=== PATIENT | female | born 1985 | race Caucasian/White ===

== ENCOUNTER 2018-12-07 07:17 | Day surgery (SDC) | payer BC ==
--- NOTE | 2018-12-06 12:18 | PCM.HPR ---
H & P Addendum review - H & P Addendum Review Date of Original H & P: 11/22/18 Date Reviewed: 12/07/18 Time Reviewed: 08:15 Patient was Examined: No Changes
[~2018-12-07 07:17] MED LIST: Aloe Vera/Sodium Chloride Gel 14.1 GM Tube ONE; EPINEPHrine 1 MG/ML SDV ONE; Lidocaine 1% 20 ML MDV ONE; Lidocaine 2% with EPINEPHrine 1:100,000 20 ML MDV ONE; Meperidine PF 25 MG/ML Syringe IVPUSH SCH; Ondansetron 4 MG/2 ML SDV IVPUSH SCH; Oxymetazoline 0.05% Nasal Spray 15 ML Bottle ONE
[2018-12-07] MEDS ORDERED: fentaNYL 100 MCG/2 ML SDV ONE (07:39)
[2018-12-07] MEDS ORDERED: Propofol 200 MG/20 ML SDV ONE (07:40)
[2018-12-07] MEDS ORDERED: Midazolam 1 MG/ML 2 ML SDV ONE (07:40)
[2018-12-07] MEDS ORDERED: diphenhydrAMINE 50 MG/ML SDV ONE (07:49)
[2018-12-07] MEDS ORDERED: Phenylephrine 1% 10 MG/ML SDV ONE (07:50)
[2018-12-07] MEDS ORDERED: Rocuronium 10 MG/ML 10 ML Syringe ONE (07:50)
[2018-12-07] MEDS ORDERED: Ondansetron 4 MG/2 ML SDV ONE (07:50)
[2018-12-07] MEDS ORDERED: Neostigmine Methylsulfate 1 MG/ML 5 ML Syringe ONE (07:50)
[2018-12-07] MEDS ORDERED: Dexamethasone 4 MG/ML 5 ML MDV ONE (07:50)
[2018-12-07] MEDS ORDERED: Glycopyrrolate 0.2 MG/ML SDV ONE ×2 (07:51→10:05)
--- NOTE | 2018-12-07 08:12 | PCM.PREANE ---
Preanesthetic Assessment - Anesthesia/Transfusion/Family Hx Anesthesia History: Prior Anesthesia Reaction Family History of Anesthesia Reaction: No Transfusion History: No Prior Transfusion(s) Intubation History: Unknown - Review of Systems General: No Symptoms Pulmonary: No Symptoms Cardiovascular: No Symptoms Gastrointestinal: No Symptoms Neurological: No Symptoms Other: Reports: None - Physical Assessment Height: 1.73 m Weight: 85.729 kg ASA Class: 2 Mental Status: Alert & Oriented x3 Airway Class: Mallampati = 2 Dentition: Reports: Normal Dentition, Chili(s) (left lower (back)) Thyro-Mental Finger Breadths: 3 Mouth Opening Finger Breadths: 3 ROM/Head Extension: Full Lungs: Clear to Auscultation, Normal Respiratory Effort Cardiovascular: Regular Rate, Regular Rhythm - Allergies Allergies/Adverse Reactions: Allergies Allergy/AdvReac Type Severity Reaction Status Date / Time No Known Allergies Allergy Verified 12/01/18 15:33 - Blood Blood Available: No - Anesthesia Plan Pre-Op Medication Ordered: None - Acknowledgements Anesthesia Type Planned: General Anesthesia Pt an Appropriate Candidate for the Planned Anesthesia: Yes Alternatives and Risks of Anesthesia Discussed w Pt/Guardian: Yes Pt/Guardian Understands and Agrees with Anesthesia Plan: Yes PreAnesthesia Questionnaire HEENT History: Reports: Allergic Rhinitis, Other (See Below) (long uvula) Respiratory History: Reports: Asthma (mild) Gastrointestinal History: Reports: GERD Genitourinary History: Reports: None [employer] ARCHITECT History: Reports: Musculoskeletal History: Reports: Fracture, Fibromyalgia Other Musculoskeletal History: hx of fx patella and toe Neurological History: Reports: Migraines Psychiatric History: Reports: Anxiety, Depression Endocrine/Metabolic History: Reports: Hypothyroidism Other Endocrine/Metabolic History: hx of Hashimotos Thyroiditis - Infectious Disease History Infectious Disease History: Reports: None - Past Surgical History Head Surgeries/Procedures: Reports: None Female Surgical History: Reports: Section - SUBSTANCE USE Smoking Status *Q: Never Smoker Recreational Drug Use History: No - HOME MEDS Home Medications: Home Meds Divalproex Sodium [Divalproex Sodium ER] 250 mg PO BEDTIME 10/06/18 [History] K[place]or Control 1 tab PO DAILY 10/06/18 [History] Levothyroxine 125 mcg PO DAILY 10/06/18 [History] Montelukast [Singulair] 10 mg PO BEDTIME 10/06/18 [History] Omeprazole Magnesium 40 mg PO DAILY 10/06/18 [History] Pregabalin [Lyrica] 150 mg PO BID 10/06/18 [History] Venlafaxine HCl [Venlafaxine ER] 225 mg PO DAILY 10/06/18 [History] Zolpidem Tartrate 10 mg PO BEDTIME PRN 10/06/18 [History] Albuterol Sulfate [Proair Hfa] 1 puff INH ASDIRECTED PRN 12/01/18 [History] Budesonide/Formoterol Fumarate [Symbicort 160-4.5 Mcg Inhaler] 2 puff INH BID [History] Cyanocobalamin (Vitamin B12) [Vitamin B12] 100 mcg PO DAILY 12/01/18 [History] Ondansetron [Zofran ODT] 4 mg PO ASDIRECTED PRN 12/01/18 [History] Rizatriptan Benzoate [Rizatriptan] 10 mg PO DAILY PRN 12/01/18 [History] Zolpidem Tartrate 10 mg PO BEDTIME PRN 12/01/18 [History] - CURRENT (IN HOUSE) MEDS Current Meds: Current Medications Fentanyl (Sublimaze) 25 mcg IVPUSH Q5M PRN PRN Reason: Pain (severe 7-10) Stop: 12/08/18 07:12 Meperidine HCl (Demerol) 12.5 mg IVPUSH .ONCE DANA Ondansetron HCl (Zofran) 4 mg IVPUSH .ONCE DANA Discontinued Medications Dexamethasone (Dexamethasone) Confirm Administered Dose 20 mg .ROUTE .[facility] ONE Stop: 12/07/18 07:51 Diphenhydramine HCl (Benadryl) Confirm Administered Dose 50 mg .ROUTE .STK-MED ONE Stop: 12/07/18 07:50 Epinephrine HCl (Adrenalin) Confirm Administered Dose 1 mg .ROUTE .STK-MED ONE Stop: 12/07/18 07:07 Fentanyl (Sublimaze) Confirm Administered Dose 100 mcg .ROUTE .STK-MED ONE Stop: 12/07/18 07:40 Glycopyrrolate (Robinul) Confirm Administered Dose 0.2 mg .ROUTE .STK-MED ONE Stop: 12/07/18 07:52 Lidocaine HCl (Xylocaine-Mpf 1%) Confirm Administered Dose 5 mls @ as directed .ROUTE .[facility] ONE Stop: 12/07/18 07:52 Lidocaine HCl (Xylocaine 1%) Confirm Administered Dose 20 ml .ROUTE .[facility] ONE Stop: 12/07/18 07:07 Lidocaine/Epinephrine (Xylocaine 2% With Epinephrine 1:100,000) Confirm Administered Dose 20 ml .ROUTE .[facility] ONE Stop: 12/07/18 07:07 Midazolam HCl (Versed 1 Mg/Ml) Confirm Administered Dose 2 mg .ROUTE .[facility] ONE Stop: 12/07/18 07:41 Neostigmine Methylsulfate (Neostigmine) Confirm Administered Dose 5 mg .ROUTE .[facility] ONE Stop: 12/07/18 07:51 Ondansetron HCl (Zofran) Confirm Administered Dose 4 mg .ROUTE .[facility] ONE Stop: 12/07/18 07:51 Oxymetazoline HCl (Afrin Original 0.05% Nasal [place]) Confirm Administered Dose 15 ml .ROUTE .[facility] ONE Stop: 12/07/18 07:07 Phenylephrine HCl (Sam-Synephrine) Confirm Administered Dose 10 mg .ROUTE .[facility] ONE Stop: 12/07/18 07:51 Propofol (Diprivan 20 Ml) Confirm Administered Dose 200 mg .ROUTE .[facility] ONE Stop: 12/07/18 07:41 Rocuronium [place] (Zemuron) Confirm Administered Dose 100 mg .ROUTE .[facility] ONE Stop: 12/07/18 07:51 Sodium Chloride ([place] Saline Nasal Gel) Confirm Administered Dose 14.1 gm .ROUTE .[facility] ONE Stop: 12/07/18 07:07
[2018-12-07] MEDS ORDERED: Lactated Ringers 1,000 ML IV SCH (08:15)
[2018-12-07] MEDS ORDERED: Bupivacaine 0.25%/EPINEPHrine 1:200,000 10 ML SDV ONE (08:15)
[2018-12-07] MEDS ORDERED: Esmolol 100 MG/10 ML SDV ONE (11:08)
[2018-12-07] MEDS ORDERED: Acetaminophen 1,000 MG in Premix Bag 1 BAG IV ONE (11:37)
[2018-12-07] MEDS ORDERED: oxyCODONE 5 MG Tab PO PRN (11:37)
[2018-12-07] MEDS: fentaNYL 100 MCG/2 ML SDV IVPUSH PRN ×4 (12:05→12:33)
--- NOTE | 2018-12-07 12:39 | PCM.OPNOTE ---
- General Post-Op/Procedure Note Date of Surgery/Procedure: 12/07/18 Condition: Good Free Text/Narrative:: Diagnosis: Snoring, elongated uvula, nasal obstruction, inferior turbinate hypertrophy, deviated nasal septum, Procedure: Partial uvulectomy, Coblation reduction of bilateral inferior turbinates, septoplasty. Surgeon: Charleen Cuevas MD Anesthesia: Gen. Anesthesiologist: Dr Love Indications: Snoring, elongated uvula, nasal obstruction, inferior turbinate hypertrophy, deviated nasal septum, Findings: Elongated uvula; bilateral inferior turbinate hypertrophy; deviated nasal septum - anterior deviation to the right in region of internal nasal valve ; severe right sided posterior vomer spur obstructing 90 percent of nasal cavity ; thin atrophic perpendicular plate of ethmoid; overall rightward curvature of the cartilaginous septum. An informed consent was obtained. A time out was performed and the patient was brought back to the operating room. Gen. anesthesia was administered with an endotracheal tube. The patient was then prepped and draped in a standard fashion. An appropriately sized Ferdinand Salomón mouth gag was introduced and suspended by Meza stand. The inferior half of the uvula was marked out. 0.25% Marcaine 1 in 100,000 epinephrine was infiltrated total of 0.6 mils was used. Monopolar cautery at a setting of 15 W cutting was used to excised the inferior half of uvula. Mucosa of the remainder stump was sutured with 3-0 Vicryl suture. Hemostasis was ensured. A throat pack was placed. Ferdinand Salomón mouth gag was removed and the patient was repositioned for the nasal procedure. A 0 degree rigid nasal endoscope was used to examine bilateral nasal cavities and photo documentation was obtained. Bilateral inferior turbinates were infilatrated with 1% lidocaine - 2 mls were injected on each side. The left inferior turbinate was addressed first. A reflex PTR coblation wand with tip dipped in AYR Gel was used at setting of 6 :2 for Coblation and coagulation respectively. The point of entry was coagulated and wand was inserted till the second marking. Two arrieta were created in the single channel. The inferior turbinate was visibly shrunk. Similar procedure was repeated on the right side with visible reduction in size of turbinates. Bilateral nasal cavities were then packed with oxymetazoline 0.05% soaked cottonoid pledgets. After an appropriate period of decongestion the pledgets were removed. Nasal septum was infiltrated with 2% lidocaine 1: 100, 000 epinephrine in a standard fashion-a total of 5 mils was used. A left sided yon-transfixation incision was performed. A left sided mucoperichondrial flap was elevated-dissection was commenced with 2 mm osteotome and further carried out with combination of che and [place] elevators. Posteriorly the flap was continued as a muco periosteal flap. A vertical incision was made in the cartilage approximately 1 cm posterior to the caudal end of septum. Contralateral mucoperichondrial and periosteal flaps were similarly elevated. There was a tear on the right flap overlying the spur. Left sided flap was entirely intact. Cartilage was dissected free from the maxillary crest up until, but not including the nasal spine. Posterior chondrotomy was performed. Posterior aspect of the septal cartilage overriding the chondral vomerine junction was removed. Inferior aspect of the perpendicular plate of the ethmoid was removed with [place]-Abdias scissors. Vomer along with the spur was moved with the Dorinda forceps. Approximately 1 cm of cartilage anterior to the chondral vomiting junction was removed preserving at least 1 cm dorsal strut. Thin strip of cartilage adjacent to the previously made vertical incision in the cartilage was also removed. Subsequent to this the septum was positioned in the midline. Flap and incision were sutured with 3-0 Vicryl and incision was also sutured Bilateral Tolbert splints were inserted and held in place with 2.0 Prolene suture. Drip pad was applied. This concluded the procedure and the patient was turned over to the anesthesiologist for recovery. Specimens: none IV fluids: 800 ml Blood loss: 15 ml Blood products: nil Disposition: PACU for recovery Follow up: In 1 week fo rremoval of splints.
--- NOTE | 2018-12-07 12:42 | PCM.POSTAN ---
POST ANESTHESIA ASSESSMENT - MENTAL STATUS Mental Status: Alert, Oriented - RESPIRATORY Respiratory Status: Respiratory Rate WNL, Airway Patent, O2 Saturation Stable - CARDIOVASCULAR CV Status: Pulse Rate WNL, Blood Pressure Stable - GASTROINTESTINAL GI Status: No Symptoms - PAIN Pain Score: 2 - POST OP HYDRATION Hydration Status: Adequate & Stable - OBSERVATIONS Free Text/Narrative:: no anesthesia problems
[2018-12-07] MEDS ORDERED: Ibuprofen 400 MG Tab PO PRN (13:30)
--- NOTE | 2018-12-07 14:58 | PCM48HPAN ---
Post Anesthesia Note - EVALUATION WITHIN 48HRS OF ANESTHETIC Vital Signs in Normal Range: Yes Patient Participated in Evaluation: Yes Respiratory Function Stable: Yes Airway Patent: Yes Cardiovascular Function Stable: Yes Hydration Status Stable: Yes Pain Control Satisfactory: Yes Nausea and Vomiting Control Satisfactory: Yes Mental Status Recovered: Yes Resp Rate: 12 Temperature: 36.6 C - COMMENTS/OBSERVATIONS Free Text/Narrative:: no anesthesia problems
== END 2018-12-07 14:59 | disposition home or self-care (01) ==
LOC: MW.SDS 07:17
PROVIDERS: ATTEND Otolaryngology
DX: K13.79 Other lesions of oral mucosa (principal); J34.3 Hypertrophy of nasal turbinates; J34.2 Deviated nasal septum; J34.89 Other specified disorders of nose and nasal sinuses; J45.909 Unspecified asthma, uncomplicated; E66.9 Obesity, unspecified; Z68.28 Body mass index [BMI] 28.0-28.9, adult; F41.9 Anxiety disorder, unspecified; K21.9 Gastro-esophageal reflux disease without esophagitis; E06.3 Autoimmune thyroiditis; Z79.890 Hormone replacement therapy; Z79.899 Other long term (current) drug therapy
CPT/HCPCS: 30802; 36415; 42140; 84703; A9270; J0131; J1100; J1200; J2250; J2370; J2405; J2704; J3010; J3490; J7120; J0171

== ENCOUNTER 2019-07-18 09:51 | Day surgery (SDC) | payer BC ==
[~2019-07-18 09:51] MED LIST changes: -Aloe Vera/Sodium Chloride Gel 14.1 GM Tube ONE; +Betamethasone Acetate/Betamethasone Sod Phosphate 30 MG/5 ML MDV EPIDUR ONE; -EPINEPHrine 1 MG/ML SDV ONE; +Iopamidol 200-M 10 ML vial ITHECAL ONE; -Lidocaine 1% 20 ML MDV ONE; +Lidocaine 2% 5 ML SDV INJECT ONE; -Lidocaine 2% with EPINEPHrine 1:100,000 20 ML MDV ONE; -Meperidine PF 25 MG/ML Syringe IVPUSH SCH; -Ondansetron 4 MG/2 ML SDV IVPUSH SCH; -Oxymetazoline 0.05% Nasal Spray 15 ML Bottle ONE; +Ropivacaine 0.5% 5 MG/ML 30 ML SDV INJECT ONE
--- NOTE | 2019-07-18 21:45 | OR ---
SURGEON: Lilian Cardona D.O. DATE OF PROCEDURE: 07/18/2019 PRIMARY SURGEON: Lilian Cardona D.O. SANDFILL OPERATOR: OR staff: 1. Neema Velazquez RN. 2. Al Mckenzie RN. 3. RT Halina. WOUND CLASS: I. PREOPERATIVE DIAGNOSES: 1. Lumbar degenerative disk disease. 2. Lumbar spondylosis. 3. Lumbar facet arthropathy. 4. Transitional vertebrae. 5. Spina bifida occulta. 6. Chronic low back pain. POSTOPERATIVE DIAGNOSES: 1. Lumbar degenerative disk disease. 2. Lumbar spondylosis. 3. Lumbar facet arthropathy. 4. Transitional vertebrae. 5. Spina bifida occulta. 6. Chronic low back pain. PROCEDURES PERFORMED: 1. Right L4-5 facet joint injection. 2. Right L5-S1 facet joint injection. 3. Left L4-5 facet joint injection. 4. Left L5-S1 facet joint injection. 5. Fluoroscopic guidance for needle placement. 6. Local with oral Valium for sedation. SCREENING QUESTIONS: The patient answered "No" to all the following questions: 1. Are you allergic to iodine, Betadine or latex? 2. Do you have a bleeding disorder? 3. Are you on anti-inflammatories or blood thinners? 4. Do you have any current local or systemic infections? MEDICAL NECESSITY: This is a patient with chronic low back pain who comes in for the above diagnostic procedure. This procedure is being performed in accordance with national guidelines written by the International Spine Intervention Society; please see medical necessity note in chart. DESCRIPTION OF PROCEDURE: The patient had the procedure thoroughly explained including risks, benefits and alternatives. Consent was signed in my clinic indicating understanding and willingness to proceed. The patient presented to [facility] and was escorted to the dressing room to disrobe and change into a hospital gown. Preoperative history and screening were performed by my nurse. Vital signs were taken and stable. The patient reported that Valium 10 milligrams was taken prior to the procedure. The patient was brought back to the procedure room and placed in the prone position on the procedure room table. A pillow was placed under the abdomen in order to flatten the lumbar lordosis. The back was prepped with ChloraPrep and sterilely draped. All personnel in the procedure room were dressed in appropriate attire including surgical scrubs, head and shoe covers. This was to ensure sterility while in the treatment room. During the time fluoroscopy was in use all personnel in the operating room wore lead frazier with thyroid collars. Sterile technique was used during the procedure. Then the fluoroscope was positioned to provide a right oblique view for the right L4-L5 facet injection. This was begun by anesthetizing the skin and soft tissues. The fluoroscope was positioned and a sterile 22-gauge 3.5 inch needle was placed at the junction of the 12 oclock position of the "eye of the miller dog" Precise needle placement was confirmed by fluoroscopy and increments of 0.2 cubic centimeters of IsoVue-200 contrast dye injected through microbore tubing under live fluoroscopy which showed no intravascular flow pattern and adequate flow in the target joint. After negative aspiration, 1.0 cubic centimeters of celestone and 0.5% Ropivacaine was injected without complications. The procedure was then repeated as above on the left for the left L4-5 facet injection. The fluoroscope was then positioned to provide a right L5-S1 facet injection. This was begun by anesthetizing the skin and soft tissues. Then using fluoroscopic guidance, a sterile 22-gauge 3.5 inch spinal needle was positioned at the right L5-S1 facet joint. Precise needle placement was confirmed by fluoroscopy in AP andoblique views, and 0.2 cubic centimeters of IsoVue-200 contrast dye was injected through microbore tubing under live fluoroscopy and showed no intravascular flow patternand adequate flow in and over the target facet joint. After negative aspiration,1.0 cubic centimeters of celestone and 0.5% Ropivacaine was injected. No complications were noted. The procedure was repaeted as above on the left for the left L5-S1 facet injection. The procedures were well tolerated and vital signs were stable during and after the procedure. The staff escorted the patient to the recovery area. The patient was given both oral and written discharge and followup instructions. The patient will follow up with a pain diary at the next visit. The patient was given both oral and written discharge and followup instructions. The patient voiced understanding including understanding of those signs and symptoms that would require emergency care and knows how to contact the office if there are any questions or concerns in the meantime. PREOPERATIVE PAIN: 6+/10. POSTOPERATIVE PAIN: 0-1/10. FOLLOWUP: In the Pain Clinic in 1 month. ZEKE SANTIAGO /[id number]
== END 2019-07-18 13:35 | disposition home or self-care (01) ==
LOC: MW.SDS 09:51
PROVIDERS: ATTEND Anesthesiology
DX: G89.29 Other chronic pain (principal); M54.5 Low back pain; M51.36 Other intervertebral disc degeneration, lumbar region; M47.816 Spondylosis without myelopathy or radiculopathy, lumbar region; M46.96 Unspecified inflammatory spondylopathy, lumbar region; Q76.49 Other congenital malformations of spine, not associated with scoliosis; Q76.0 Spina bifida occulta; J45.909 Unspecified asthma, uncomplicated; K21.9 Gastro-esophageal reflux disease without esophagitis; E78.5 Hyperlipidemia, unspecified; G43.909 Migraine, unspecified, not intractable, without status migrainosus; E66.9 Obesity, unspecified; F41.9 Anxiety disorder, unspecified; F32.9 Major depressive disorder, single episode, unspecified; E03.9 Hypothyroidism, unspecified; Z91.048 Other nonmedicinal substance allergy status; Z79.899 Other long term (current) drug therapy; Z79.84 Long term (current) use of oral hypoglycemic drugs
CPT/HCPCS: 64493; 64494; 81025; J0702

== ENCOUNTER 2020-05-02 11:04 | Day surgery (SDC) | payer MEDICAID ==
[2020-05-02] MEDS ORDERED: Lidocaine 2% 5 ML SDV INJECT ONE (12:30)
[2020-05-02] MEDS ORDERED: Ropivacaine 0.5% 5 MG/ML 30 ML SDV INJECT ONE (12:30)
[2020-05-02] MEDS ORDERED: Iopamidol 200-M 10 ML vial ITHECAL ONE (12:30)
[2020-05-02] MEDS ORDERED: Betamethasone Acetate/Betamethasone Sod Phosphate 30 MG/5 ML MDV EPIDUR ONE (12:30)
--- NOTE | 2020-05-02 20:29 | OR ---
SURGEON: Lilian Cardona D.O. DATE OF PROCEDURE: 05/02/2020 OR STAFF PRESENT: 1. Al Grant CRNA. 2. Germania Zapata RN. 3. Sofy Palma RT. WOUND CLASS: I. PREOPERATIVE DIAGNOSES: 1. Left lumbosacral radiculopathy, L5-S1. 2. Severe degenerative disk disease. 3. Transitional vertebrae, L5-S1. 4. Chronic low back and left lower extremity radiculopathy. POSTOPERATIVE DIAGNOSES: 1. Left lumbosacral radiculopathy, L5-S1. 2. Severe degenerative disk disease. 3. Transitional vertebrae, L5-S1. 4. Chronic low back and left lower extremity radiculopathy. PROCEDURES PERFORMED: 1. Left S1 transforaminal epidural steroid injection. 2. Fluoroscopic guidance for needle placement. 3. Local with oral Valium for sedation. SCREENING QUESTIONS: The patient answered "no" to all of the following questions: 1. Are you allergic to iodine, Betadine or latex? 2. Do you have a bleeding disorder? 3. Do you have any joint replacements, heart valve replacements, or a pacemaker? 4. Are you allergic to anti-inflammatories or blood thinners? 5. Do you have any current local or systemic infections? MEDICAL NECESSITY: This is a patient with a history of chronic low back pain and lower extremity radicular pain in the above dermatomal pattern that comes in for the above diagnostic and therapeutic procedure. Pertinent positives and negatives for this suspected disease process along with the diagnostic findings and testing are in the patient's history and physical exam. The most salient feature includes radicular pain in the above dermatomal pattern. The patient had failed attempts at conservative therapy including physical therapy, nonsteroidal anti- inflammatory drugs, and other medications. No contraindications to perform this procedure including medical, no bleeding disorders or infections, no psychological, no antisocial personality disorder or active addiction disorder. There are no work-related issues, and, in general, the patient does not have any history of multiple prior interventions, surgeries or nerve blocks which have failed to return the patient to function. The patient's other symptoms to be treated include numbness, paresthesia, dysesthesia or hypoesthesia referred into the left lower extremity or any weakness in the involved myotome. This procedure is being performed in accordance with national guidelines as written by the International Spine Intervention Society ([place]). DESCRIPTION OF PROCEDURE: The patient had the procedure thoroughly explained including risks, benefits and alternatives. Consent was signed in my clinic indicating understanding and willingness to proceed. The patient presented to [facility] [place] where the patient was escorted to the dressing room to disrobe and change into a hospital gown. Preoperative vital signs were taken and stable. The patient reported that Valium was taken prior to the procedure. The patient was brought to the procedure room and placed in the prone position on the table. A pillow was placed under the abdomen in order to flatten the lumbar lordosis. The back was prepped with ChloraPrep and sterilely draped. All personnel in the operating room were dressed in appropriate attire including surgical scrubs, head and shoe covers. This was to ensure sterility while in the treatment room. During the time fluoroscopy was in use, all personnel in the operating room wore lead frazier with thyroid collars. Sterile technique was used during the procedure. The fluoroscope was placed for the left transforaminal epidural steroid injection. There was no sign of infection at the skin site for needle insertion. The skin was anesthetized with 2% lidocaine with a 27 gauge 1-1/2 inch needle. Then a 22 gauge 3-1/2 inch spinal needle, advanced to the S1. Under direct fluoroscopic guidance needle position was verified in three views; AP, oblique and lateral, with 0.2 cubic centimeters increments of Isovue-200 dye. No intravascular flow pattern was observed under live fluoroscopy. Then 12 milligrams of Celestone was slowly injected after negative aspiration of heme, cerebrospinal fluid and no paresthesias were noted. The needle was cleared prior to removal from the skin. No adverse reactions were noted. The patient was brought to the recovery room awake and in good condition by my staff. The patient was monitored and discharge instructions were given after a brief stay in the recovery area. Both oral and written discharge and follow up instructions were given. The patient will follow up in the clinic in 3-4 weeks post procedure to evaluate the efficacy. The patient verbalized understanding including understanding of those signs and symptoms that would require emergency care and knows how to contact the office if there are any problems or questions in the meantime. PREOPERATIVE PAIN: 5/10. POSTOPERATIVE PAIN: 0/10. FOLLOWUP: In the Pain Clinic in one month. HOGLCHR / MODL /[id number]
== END 2020-05-02 13:45 ==
LOC: MW.SDS 11:04
PROVIDERS: ATTEND Anesthesiology
DX: G89.29 Other chronic pain (principal); M51.17 Intervertebral disc disorders with radiculopathy, lumbosacral region; M47.816 Spondylosis without myelopathy or radiculopathy, lumbar region; M51.27 Other intervertebral disc displacement, lumbosacral region; M41.9 Scoliosis, unspecified; M79.7 Fibromyalgia; J45.909 Unspecified asthma, uncomplicated; K21.9 Gastro-esophageal reflux disease without esophagitis; E78.5 Hyperlipidemia, unspecified; F41.9 Anxiety disorder, unspecified; F32.9 Major depressive disorder, single episode, unspecified; E66.9 Obesity, unspecified; G47.30 Sleep apnea, unspecified; Q76.0 Spina bifida occulta; Q76.49 Other congenital malformations of spine, not associated with scoliosis; Z79.890 Hormone replacement therapy; Z79.899 Other long term (current) drug therapy; Z68.27 Body mass index [BMI] 27.0-27.9, adult
CPT/HCPCS: 64483; J0702; 62323

== ENCOUNTER 2020-10-15 10:51 | Day surgery (SDC) | payer MEDICAID ==
[2020-10-15] MEDS ORDERED: Betamethasone Acetate/Betamethasone Sod Phosphate 30 MG/5 ML MDV EPIDUR ONE (12:30)
[2020-10-15] MEDS ORDERED: Ropivacaine 0.5% 5 MG/ML 30 ML SDV INJECT ONE (12:30)
[2020-10-15] MEDS ORDERED: Lidocaine 2% 5 ML SDV INJECT ONE (12:30)
[2020-10-15] MEDS ORDERED: Iopamidol 200-M 10 ML vial ITHECAL ONE (12:30)
--- NOTE | 2020-10-15 15:23 | OR ---
SURGEON: Lilian Cardona D.O. DATE OF PROCEDURE: 10/15/2020 PRIMARY SURGEON: Lilian Cardona DO PREOPERATIVE DIAGNOSES: 1. Lumbar degenerative disk disease, L5-S1. 2. L5-S1 transitional vertebrae. 3. Bilateral neural foraminal stenosis, L5-S1. 4. Bilateral lumbar radiculopathy at S1. POSTOPERATIVE DIAGNOSES: 1. Lumbar degenerative disk disease, L5-S1. 2. L5-S1 transitional vertebrae. 3. Bilateral neural foraminal stenosis, L5-S1. 4. Bilateral lumbar radiculopathy at S1. PROCEDURES PERFORMED: 1. Right S1 transforaminal epidural steroid injection. 2. Left S1 transforaminal epidural steroid injection. 3. Fluoroscopic guidance for needle placement. 4. Local with oral Valium for sedation. ASSISTANTS: OR staff present: 1. Shayele Milner RN. 2. Chase Lott RN. 3. RT Colleen. SCREENING QUESTIONS: The patient answered "no" to all of the following questions: 1. Are you allergic to iodine, Betadine or latex? 2. Do you have a bleeding disorder? 3. Do you have any joint replacements, heart valve replacements, or a pacemaker? 4. Are you allergic to anti-inflammatories or blood thinners? 5. Do you have any current local or systemic infections? DESCRIPTION OF PROCEDURE: The patient had the procedure thoroughly explained including risks, benefits and alternatives. Consent was signed in my clinic indicating understanding and willingness to proceed. The patient presented to [facility] [place] where the patient was escorted to the dressing room to disrobe and change into a hospital gown. Preoperative vital signs were taken and stable. The patient reported that Valium was taken prior to the procedure. The patient was brought to the procedure room and placed in the prone position on the table. A pillow was placed under the abdomen in order to flatten the lumbar lordosis. The back was prepped with ChloraPrep and sterilely draped. All personnel in the operating room were dressed in appropriate attire including surgical scrubs, head and shoe covers. This was to ensure sterility while in the treatment room. During the time fluoroscopy was in use, all personnel in the operating room wore lead frazier with thyroid collars. Sterile technique was used during the procedure. The fluoroscope was placed for the right S1 and then the left S1 transforaminal epidural steroid injection. There was no sign of infection at the skin site for needle insertion. The skin was anesthetized with 2% lidocaine with a 27 gauge 1-1/2 inch needle. Then, a 22 gauge 3-1/2 inch spinal needle, advanced to the right S1 foramen. Under direct fluoroscopic guidance needle position was verified in three views; AP, oblique and lateral, with 0.2 cubic centimeters increments of Isovue-200 dye. No intravascular flow pattern was observed under live fluoroscopy. Then 6 milligrams of Celestone and local was slowly injected after negative aspiration of heme, cerebrospinal fluid and no paresthesias were noted. The needle was cleared prior to removal from the skin. The procedure was then repeated on the right for the right S1 transforaminal epidural steroid injection as above. No adverse reactions were noted. The patient was brought to the recovery room awake and in good condition by my staff. The patient was monitored and discharge instructions were given after a brief stay in the recovery area. Both oral and written discharge and follow up instructions were given. The patient will follow up in the clinic in 3-4 weeks post procedure to evaluate the efficacy. The patient verbalized understanding including understanding of those signs and symptoms that would require emergency care and knows how to contact the office if there are any problems or questions in the meantime. PREOPERATIVE PAIN: 5/10. POSTOPERATIVE PAIN: 1 to 2 out of 10. FOLLOWUP: In the Pain Clinic in 3 weeks. ZEKE / PAMELA /[id number] ROYAL
== END 2020-10-15 13:55 ==
LOC: MW.SDS 10:51
PROVIDERS: ATTEND Anesthesiology
DX: G89.4 Chronic pain syndrome (principal); M51.17 Intervertebral disc disorders with radiculopathy, lumbosacral region; M48.07 Spinal stenosis, lumbosacral region; F41.9 Anxiety disorder, unspecified; F32.9 Major depressive disorder, single episode, unspecified; J45.909 Unspecified asthma, uncomplicated; E78.5 Hyperlipidemia, unspecified; G47.00 Insomnia, unspecified; E66.9 Obesity, unspecified; E03.9 Hypothyroidism, unspecified; M79.7 Fibromyalgia; M47.816 Spondylosis without myelopathy or radiculopathy, lumbar region; M51.16 Intervertebral disc disorders with radiculopathy, lumbar region; Q76.49 Other congenital malformations of spine, not associated with scoliosis; M41.9 Scoliosis, unspecified; Z91.048 Other nonmedicinal substance allergy status; Z79.899 Other long term (current) drug therapy; Z79.890 Hormone replacement therapy; Z98.890 Other specified postprocedural states

== ENCOUNTER 2021-02-06 10:52 | Day surgery (SDC) | payer MEDICAID ==
[2021-02-06] MEDS ORDERED: Ropivacaine 0.5% 5 MG/ML 30 ML SDV INJECT ONE (12:00)
[2021-02-06] MEDS ORDERED: Iopamidol 200-M 10 ML vial ITHECAL ONE (12:00)
[2021-02-06] MEDS ORDERED: Lidocaine 2% 5 ML SDV INJECT ONE (12:00)
[2021-02-06] MEDS ORDERED: Betamethasone Acetate/Betamethasone Sod Phosphate 30 MG/5 ML MDV EPIDUR ONE (12:00)
--- NOTE | 2021-02-06 21:59 | OR ---
SURGEON: Lilian Cardona D.O. DATE OF PROCEDURE: 02/06/2021 PRIMARY SURGEON: Lilian Cardona D.O. CERAMIC PLATER: OR staff present: 1. Jeferson Hilario RN. 2. Jeferson Zapata RN. 3. Carl Palma RT. WOUND CLASS: I. PREOPERATIVE DIAGNOSES: 1. L5-S1 herniated disk. 2. L5-S1 transitional vertebrae. 3. Lumbar spondylosis. 4. Bilateral lower extremities L5-S1 radiculopathy. POSTOPERATIVE DIAGNOSES: 1. L5-S1 herniated disk. 2. L5-S1 transitional vertebrae. 3. Lumbar spondylosis. 4. Bilateral lower extremities L5-S1 radiculopathy. PROCEDURE PERFORMED: 1. Right L5 transforaminal epidural steroid injection. 2. Right S1 transforaminal epidural steroid injection. 3. Left S1 transforaminal epidural steroid injection. 4. Fluoroscopic guidance for needle placement. 5. Local with oral Valium for sedation. SCREENING QUESTIONS: The patient answered "no" to all of the following questions: 1. Are you allergic to iodine, Betadine or latex? 2. Do you have a bleeding disorder? 3. Do you have any joint replacements, heart valve replacements, or a pacemaker? 4. Are you allergic to anti-inflammatories or blood thinners? 5. Do you have any current local or systemic infections? DESCRIPTION OF PROCEDURE: The patient had the procedure thoroughly explained including risks, benefits and alternatives. Consent was signed in my clinic indicating understanding and willingness to proceed. The patient presented to [facility] [place] where the patient was escorted to the dressing room to disrobe and change into a hospital gown. Preoperative vital signs were taken and stable. The patient reported that Valium was taken prior to the procedure. The patient was brought to the procedure room and placed in the prone position on the table. A pillow was placed under the abdomen in order to flatten the lumbar lordosis. The back was prepped with ChloraPrep and sterilely draped. All personnel in the operating room were dressed in appropriate attire including surgical scrubs, head and shoe covers. This was to ensure sterility while in the treatment room. During the time fluoroscopy was in use, all personnel in the operating room wore lead frazier with thyroid collars. Sterile technique was used during the procedure. The fluoroscope was placed for the right L5 lumbar transforaminal epidural steroid injection. There was no sign of infection at the skin site for needle insertion. The skin was anesthetized with 2% lidocaine with a 27 gauge 1-1/2 inch needle. Then a 22 gauge 3-1/2 inch spinal needle, advanced to the foramen. Under direct fluoroscopic guidance needle position was verified in three views; AP, oblique and lateral, with 0.2 cubic centimeters increments of Isovue-200 dye. No intravascular flow pattern was observed under live fluoroscopy. A mixture of Celestone and local was slowly injected after negative aspiration of heme, cerebrospinal fluid and no paresthesias were noted. The needle was cleared prior to removal from the skin. No adverse reactions were noted. The procedure was then repeated as above for the right S1 transforaminal epidural and then the left transforaminal epidural The patient was brought to the recovery room awake and in good condition by my staff. The patient was monitored and discharge instructions were given after a brief stay in the recovery area. Both oral and written discharge and follow up instructions were given. The patient will follow up in the clinic in 3-4 weeks post procedure to evaluate the efficacy. The patient verbalized understanding including understanding of those signs and symptoms that would require emergency care and knows how to contact the office if there are any problems or questions in the meantime. PREOPERATIVE PAIN: 4- 9/10. POSTOPERATIVE PAIN: 0/10. PLAN: Followup in the pain clinic in 2 weeks. ZEKE / PAMELA /[id number] ROYAL
== END 2021-02-06 13:34 | disposition home or self-care (01) ==
LOC: MW.SDS 10:52
PROVIDERS: ATTEND Anesthesiology
DX: M51.17 Intervertebral disc disorders with radiculopathy, lumbosacral region (principal); M47.26 Other spondylosis with radiculopathy, lumbar region; Q76.49 Other congenital malformations of spine, not associated with scoliosis; G43.709 Chronic migraine without aura, not intractable, without status migrainosus; K21.9 Gastro-esophageal reflux disease without esophagitis; E78.5 Hyperlipidemia, unspecified; E66.9 Obesity, unspecified; G62.9 Polyneuropathy, unspecified; G47.30 Sleep apnea, unspecified; E03.9 Hypothyroidism, unspecified; M79.7 Fibromyalgia; M51.16 Intervertebral disc disorders with radiculopathy, lumbar region; Z68.27 Body mass index [BMI] 27.0-27.9, adult; Z91.048 Other nonmedicinal substance allergy status; Z79.899 Other long term (current) drug therapy; Z79.890 Hormone replacement therapy; Z98.890 Other specified postprocedural states
CPT/HCPCS: 64483; 64484; J0702; J2795; Q9966

== ENCOUNTER 2021-04-08 07:35 | Day surgery (SDC) | payer OTHER, MEDICAID ==
[~2021-04-08 07:35] MED LIST changes: -Betamethasone Acetate/Betamethasone Sod Phosphate 30 MG/5 ML MDV EPIDUR ONE; -Iopamidol 200-M 10 ML vial ITHECAL ONE; +Lactated Ringers 1,000 ML IV SCH; -Lidocaine 2% 5 ML SDV INJECT ONE; -Ropivacaine 0.5% 5 MG/ML 30 ML SDV INJECT ONE; +ceFAZolin 1 GM in Premix Bag 1 BAG IV ONE
[2021-04-08] MEDS ORDERED: Propofol 200 MG/20 ML SDV ONE (11:12)
[2021-04-08] MEDS ORDERED: Midazolam 1 MG/ML 2 ML SDV ONE (11:12)
[2021-04-08] MEDS ORDERED: fentaNYL 100 MCG/2 ML SDV ONE (11:12)
[2021-04-08] MEDS ORDERED: Ondansetron 4 MG/2 ML SDV ONE (11:12)
[2021-04-08] MEDS ORDERED: Ketamine 500 mg/10 ML MDV ONE (12:03)
--- NOTE | 2021-04-08 12:04 | PCM.PREANE ---
Preanesthetic Assessment - Anesthesia/Transfusion/Family Hx Anesthesia History: Prior Anesthesia Reaction Family History of Anesthesia Reaction: No Transfusion History: No Prior Transfusion(s) Intubation History: Unknown - Physical Assessment NPO Status Date: 04/08/21 NPO Status Time: 00:01 Height: 5 ft 8 in Weight: 177 lb ASA Class: 5E Emergency Mental Status: Alert & Oriented x3 Airway Class: Mallampati = 2 Dentition: Reports: Normal Dentition ROM/Head Extension: Full Lungs: Normal Respiratory Effort Cardiovascular: Regular Rhythm - Lab Values: Laboratory Last Values SARS-CoV-2 RNA (MILO) NEGATIVE (NEGATIVE) 04/08/21 10:37 - Allergies Allergies/Adverse Reactions: Allergies Allergy/AdvReac Type Severity Reaction Status Date / Time animal dander Allergy Unknown Other Verified 04/04/21 10:48 dog dander Allergy Unknown Other Verified 04/04/21 10:48 mold Allergy Unknown Other Verified 04/04/21 10:48 pollen extracts Allergy Unknown Other Verified 04/04/21 10:48 other Allergy Unknown Other Uncoded 04/04/21 10:48 - Anesthesia Plan Pre-Op Medication Ordered: None - Acknowledgements Anesthesia Type Planned: MAC Pt an Appropriate Candidate for the Planned Anesthesia: Yes Alternatives and Risks of Anesthesia Discussed w Pt/Guardian: Yes Pt/Guardian Understands and Agrees with Anesthesia Plan: Yes Additional Comments: npo after mn chronic pain mostly ekaterina legs below the knees tob none etoh occ bmi 27 fibromyalgia CRPS ekaterina lower legs adhd hayfever asthma prn inhalers susan par prone with awake stimulater paresthesias anxiety depression headaches multiple allergies naltrexone 6 mg a day took 2 mg this am no cv problems no questions rarely takes the intranasal ketamine due to burning PreAnesthesia Questionnaire HEENT History: Reports: Allergic Rhinitis Cardiovascular History: Reports: None Respiratory History: Reports: Asthma Other Respiratory History: has not needed inhaler for 3 years Gastrointestinal History: Reports: GERD Genitourinary History: Reports: None TOBACCO HANGER History: Reports: Musculoskeletal History: Reports: Back Pain, Chronic, Fracture, Fibromyalgia Other Musculoskeletal History: hx of fx toes Neurological History: Reports: Migraines, Neuropathy, Peripheral, Other (See Below) Other Neuro History: lumbar degenerative disc disease Psychiatric History: Reports: ADHD Endocrine/Metabolic History: Reports: Hypothyroidism Other Endocrine/Metabolic History: hx of Hashimotos thyroiditis Hematologic History: Reports: None Immunologic History: Reports: None Oncologic (Cancer) History: Reports: None Dermatologic History: Reports: None - Infectious Disease History Infectious Disease History: Reports: None - Past Surgical History Head Surgeries/Procedures: Reports: None HEENT Surgical History: Reports: Naso-Sinus Surgery, Other (See Below) Other HEENT Surgeries/Procedures: Uvulectomy Cardiovascular Surgical History: Reports: None Respiratory Surgical History: Reports: None GI Surgical History: Reports: None Female Surgical History: Reports: Section Endocrine Surgical History: Reports: None Neurological Surgical History: Reports: None Musculoskeletal Surgical History: Reports: None Oncologic Surgical History: Reports: None - SUBSTANCE USE Tobacco Use Status *Q: Never Tobacco User Recreational Drug Use History: Yes Recreational Drug Type: Reports: Marijuana/Hashish - HOME MEDS Home Medications: Home Meds [place]or Control 1 tab PO DAILY 10/06/18 [History] Levothyroxine 125 mcg PO QAM 10/06/18 [History] Montelukast [Singulair] 10 mg PO BEDTIME 10/06/18 [History] Albuterol Sulfate [Proair Hfa] 1 puff INH ASDIRECTED PRN 12/01/18 [History] Cyanocobalamin (Vitamin B12) [Vitamin B12] 100 mcg PO DAILY 12/01/18 [History] Rizatriptan Benzoate [Rizatriptan] 10 mg PO ONETIME MDD 30 mg 12/01/18 [History] Azelastine HCl 1 spray NASBOTH BID PRN 04/04/21 [History] Cetirizine [ZyrTEC] 10 mg PO DAILY 04/04/21 [History] Dexlansoprazole [Dexilant] 30 mg PO DAILY 04/04/21 [History] FLUoxetine HCl [Fluoxetine HCl] 40 mg PO DAILY 04/04/21 [History] Gabapentin [Neurontin] 300 mg PO QAM 04/04/21 [History] Gabapentin [Neurontin] 600 mg PO BEDTIME 04/04/21 [History] Ketamine HCl [Ketamine Hydrochloride] 1 dose TOP ASDIRECTED PRN 04/04/21 [History] Ketamine HCl in Sterile Water [Ketamine 50 mg/ml-Water Syring] 1 spray NASBOTH ASDIRECTED PRN 04/04/21 [History] Lisdexamfetamine Dimesylate [Vyvanse] 40 mg PO ACBREAKFAST 04/04/21 [History] Naltrexone 2 mg PO QAM 04/04/21 [History] Naltrexone 4 mg PO BEDTIME 04/04/21 [History] Ondansetron [Zofran ODT] 4 - 8 mg PO Q4H PRN 04/04/21 [History] tiZANidine HCl [Tizanidine HCl] 4 mg PO BEDTIME 04/04/21 [History] - CURRENT (IN HOUSE) MEDS Current Meds: Current Medications Lactated Ringer's (Ringers, Lactated) 1,000 mls @ 125 mls/hr IV ASDIRECTED DANA Lidocaine HCl (Lidocaine 1% 5 Ml Sdv) 10 ml INJECT ONETIME ONE Stop: 04/08/21 12:01 Discontinued Medications Fentanyl (Fentanyl 100 Mcg/2 Ml Sdv) Confirm Administered Dose 100 mcg .ROUTE .STK-MED ONE Stop: 04/08/21 11:13 Cefazolin Sodium/Dextrose 1 gm (/ Premix) 50 mls @ 100 mls/hr IV ONETIME ONE Stop: 04/04/21 10:10 Midazolam HCl (Midazolam 1 Mg/Ml 2 Ml Sdv) Confirm Administered Dose 2 mg .ROUTE .STK-MED ONE Stop: 04/08/21 11:13 Ondansetron HCl (Ondansetron 4 Mg/2 Ml Sdv) Confirm Administered Dose 4 mg .ROUTE .STK-MED ONE Stop: 04/08/21 11:13 Propofol (Propofol 200 Mg/20 Ml Sdv) Confirm Administered Dose 400 mg .ROUTE .STK-MED ONE Stop: 04/08/21 11:13
--- NOTE | 2021-04-08 13:59 | PCM.POSTAN ---
POST ANESTHESIA ASSESSMENT - MENTAL STATUS Mental Status: Alert (no anesthetic problems), Oriented - RESPIRATORY Respiratory Status: Respiratory Rate WNL, Airway Patent, O2 Saturation Stable - CARDIOVASCULAR CV Status: Pulse Rate WNL, Blood Pressure Stable - GASTROINTESTINAL GI Status: No Symptoms - POST OP HYDRATION Hydration Status: Adequate & Stable
--- NOTE | 2021-04-08 15:07 | PCM48HPAN ---
Post Anesthesia Note - EVALUATION WITHIN 48HRS OF ANESTHETIC Vital Signs in Normal Range: Yes Patient Participated in Evaluation: Yes Respiratory Function Stable: Yes Airway Patent: Yes Cardiovascular Function Stable: Yes Hydration Status Stable: Yes Pain Control Satisfactory: Yes (insertion site oreness) Nausea and Vomiting Control Satisfactory: Yes Mental Status Recovered: Yes - COMMENTS/OBSERVATIONS Free Text/Narrative:: Doing well. No problems noted present. Adequate for discharge.
--- NOTE | 2021-04-08 19:41 | OR ---
SURGEON: Lilian Cardona D.O. DATE OF PROCEDURE: 04/08/2021 PRIMARY SURGEON: Lilian Cardona D.O. TITLE CAMERA OPERATOR: OR staff present: 1. Shaylee Milner RN. 2. Al Mac RT. WOUND CLASS: I. PREOPERATIVE DIAGNOSES: 1. Complex regional pain syndrome type I, not otherwise specified. 2. Bilateral lower extremities chronic neuropathic pain. 3. Chronic pain syndrome. POSTOPERATIVE DIAGNOSES: 1. Complex regional pain syndrome type I, not otherwise specified. 2. Bilateral lower extremities chronic neuropathic pain. 4. Chronic pain syndrome. PROCEDURE PERFORMED: 1. [employer] spinal cord stimulator 16 standard contact lead electrodes placed to bottom of T8 at midline right . 2. [employer] spinal cord stimulator 16 contact lead attempted on the left. 3. Fluoroscopic guidance for needle placement. ANESTHESIA:MAC SCREENING QUESTIONS: The patient answered no to all the following questions: 1. Are you allergic to iodine, Betadine, or latex? 2. Do you have a bleeding disorder? 3. Are you on anti-inflammatories or blood thinners? 4. Are you ? 5. Do you have any current local or systemic infections? 6. Do you have any joint replacements, heart valve replacements or a pacemaker? DESCRIPTION OF PROCEDURE: The patient had the procedure thoroughly explained including risks, benefits, and alternatives. Consent was signed in my clinic indicating understanding and willingness to proceed. The patient presented to [facility] and was escorted to the dressing room to disrobe and change into a hospital gown. Preoperative history and screening were performed by the nurse. Vital signs were taken and stable. The patient was set up with an IV prior to the procedure. The patient was brought back to the procedure room and placed in the prone position on the procedure room table. A pillow was placed under the abdomen in order to flatten the lumbar lordosis. The patient was positioned comfortably and there was no evidence of infection at the sites of needle insertion. The back was prepped with ChloraPrep and sterilely draped. All personnel in the operating room were dressed in appropriate attire including surgical scrubs, head and shoe covers. This was to ensure sterility while in the treatment room. During the time fluoroscopy was in use, all personnel in the operating room wore lead frazier with thyroid collars. Sterile technique was used during the procedure. Prior to the start of the procedure, prophylactic antibiotic was administered IV- 1gm Ancef. Skeletal landmarks were identified under fluoroscopic guidance for the L1-2 interspace. At all insertion sites, the skin and soft tissues were anesthetized with 2% lidocaine preservative-free with a sterile 27-gauge 1-1/2 inch needle. The epidural space was entered with a 14-gauge Tuohy epidural needle with loss-of- resistance technique. Under live fluoroscopic guidance, the 16 standard contact lead electrodes were advanced approximately to the midline at the bottom of the T8 vertebral body on the right. No CSF, no heme, no paresthesia were noted. Then the lead placement was attempted on the left but with anterior epidural space migration with repostitioning was attempted x 3 and then aborted. Then testing by the neuromodulation clinical specialist revealed appropriate coverage of the patient's normal areas of pain using the midline lead placed at bottom of T8. The lead was then secured to the skin with mastisol and occlusive dressing. No complications were noted throughout the procedure and vital signs were stable. Then the patient was brought to the recovery room in stable condition. At that time, the patient had additional stimulation patterns programmed which covered all the normal areas of pain covering the low back , bilateral lower extremities, feet and to her toes. The patient tolerated the procedure well and was released home with postoperative instructions for followup in the clinic. The patient will fill out a pain diary throughout the week of the spinal cord stimulator trial. Additionally, prior to discharge, postoperative instructions were given to the patient and the patient voiced understanding, including understanding of those signs and symptoms that would require emergency care. PREOPERATIVE PAIN: 8/10. POSTOPERATIVE PAIN: 0/10. AREAS OF PAIN All covered by spinal cord stimulator sensation. PLAN: Follow up in the Pain Clinic on Wednesday with pain diary. HOGRAKEL / PAMELA /[id number] ROYAL
== END 2021-04-08 15:02 | disposition home or self-care (01) ==
LOC: MW.SDS 07:35
PROVIDERS: ATTEND Anesthesiology
DX: G90.522 Complex regional pain syndrome I of left lower limb (principal); M48.061 Spinal stenosis, lumbar region without neurogenic claudication; Q76.49 Other congenital malformations of spine, not associated with scoliosis; M51.16 Intervertebral disc disorders with radiculopathy, lumbar region; G89.4 Chronic pain syndrome; E78.5 Hyperlipidemia, unspecified; K21.9 Gastro-esophageal reflux disease without esophagitis; E03.9 Hypothyroidism, unspecified; E66.9 Obesity, unspecified; Z01.812 Encounter for preprocedural laboratory examination; Z20.822 Contact with and (suspected) exposure to COVID-19; Z91.048 Other nonmedicinal substance allergy status; Z79.899 Other long term (current) drug therapy; Z68.26 Body mass index [BMI] 26.0-26.9, adult
CPT/HCPCS: 63650; 63685; 81025; 87635; C1778; J2250; J2405; J2704; J7120; J3010; U0002

== ENCOUNTER 2021-08-01 12:08 | Emergency (ER) | payer OTHER ==
[2021-08-01] MEDS ORDERED: Sodium Chloride 0.9% 10 ML Syringe FLUSH PRN (12:19)
[2021-08-01] MEDS ORDERED: Ondansetron 4 MG/2 ML SDV IVPUSH ONE (12:19)
[2021-08-01] MEDS ORDERED: Sodium Chloride 0.9% 2.5 ML Syringe FLUSH PRN (12:19)
--- NOTE | 2021-08-01 12:21 | EDM.PDOC ---
ED HPI GENERAL MEDICAL PROBLEM - General Chief Complaint: Respiratory Problem Stated Complaint: COVID POS Time Seen by Provider: 08/01/21 12:13 Source of Information: Reports: Patient History Limitations: Reports: No Limitations - History of Present Illness INITIAL COMMENTS - FREE TEXT/NARRATIVE: HISTORY AND PHYSICAL: History of present illness: The patient is a 35-year-old female who presents to the emergency room via EMS for complaints of cough, pain, weakness, decreased appetite, decreased fluid intake, and tested Covid positive on Wednesday. The patient states that her s ymptoms started on 07/23/2021. She was tested on 07/28/2021 and notified on 07/30/2020 one of her positive status. The patient does complain of a headache. She states that she was seen on Wednesday and now as she had a spinal cord stimulator placed on June 24, 2021 and was still having upper back pain. The patient has been taking Toradol 10 mg p.o. at home. Patient denies any change in vision, syncope or near syncope. Denies any chest pain. Denies any diarrhea, constipation or dysuria. In the emergency department the patient is hemodynamically stable with a pulse of 80, blood pressure 110/64, respiration rate 18, O2 saturation of 98% on room air. Temperature 98 degrees. Review of systems: As per history of present illness and below otherwise all systems reviewed and negative. Past medical history: As per history of present illness and as reviewed below otherwise noncontributory. Surgical history: As per history of present illness and as reviewed below otherwise noncontributor y. Social history: See social history for further information Family history: As per history of present illness and as reviewed below otherwise noncontributory. Physical exam: General: Well developed and well nourished. Alert and orientated x 3. Nontoxic in appearance and in no acute distress. Vital signs are stable and have been reviewed by me. Nursing notes were reviewed. HEENT: Atraumatic, normocephalic, pupils equal and reactive bilaterally, negative for conjunctival pallor or scleral icterus, mucous membranes moist, TMs normal bilaterally, throat clear, neck supple, nontender, trachea midline. No drooling or trismus noted. No meningeal signs. No hot potato voice noted. Lungs: Rubs lower right, rest lung pisano clear to auscultation. No wheezes, rales, or rhonchi. Chest nontender. Normal work of breathing, no accessory muscles used. Heart: S1S2, regular rate and rhythm without overt murmur, gallops, or rubs. No JVD. No peripheral edema Abdomen: Soft, nondistended, nontender. Normoactive bowel sounds. Negative for masses or costovertebral tenderness. Skin: Intact, warm, dry. No lesions or rashes noted. Hematologic: No petechiae or purpra. Mucosa appropriate color and normal nail bed color and refill. Extremities: Atraumatic, moves all extremities per self without difficulty or deficits, negative for cords or calf pain. Neurovascular unremarkable. Neuro: Awake, alert, oriented. Cranial nerves II through XII unremarkable. Cerebellum unremarkable. Motor and sensory unremarkable throughout. Exam nonfocal. Psychiatric: Mood and affect are appropriate. Normal thought process. Answering questions appropriately. Notes: *This patient was seen and evaluated during the 2019 SARS-CoV-2 novel coronavirus pandemic period. Community viral transmission is ongoing at time of this encounter and the emergency department is operating under pandemic response procedures. As stated above the patient is a 35-year-old female who presents to the emergency room after testing for Covid positive on 07/28/2021. Her symptoms started 07/23/2021. The patient arrived via EMS. The patient's Covid symptoms and her stable vital signs along with her health history do not put her at a moderate or high risk for hospitalization. Therefore no Regeneron infusion is indicated at this time. The patient is aware of this. I have ordered a CBC, CMP, magnesium, EKG, chest x-ray and IV fluids, and Zofran. As the patient is on oral Toradol at home I have ordered Tylenol 975 mg p.o. The patient is agreeable with this plan. The patient CBC is unremarkable. The patient's CMP is remarkable for a sodium of 135, calcium 7.9 magnesium 1.7, AST 48.The patient's chest x-ray IMPRESSION: 1. Mild ground-glass opacities are present in the right lung base with patchy consolidation seen in the left lung base. The left basilar consolidation has increased since prior exam. The patient complained of dizziness and of being"hot", she was not orthostatic. I have sent the order for the patient to have the Regeneron as she has Covid pneumonia. The patient is aware. The patient is agreeable for discharge. I have talked with the patient about today's findings, in addition to providing specific details for plan of care. Reassessment at the time of disposition demonstrates that the patient is in no acute distress. The patient is stable for discharge, counseling was provided and we discussed in great detail signs and symptoms that would prompt them to return to the Emergency Department. Medication, follow up and supportive care measures were reviewed and discussed. Voices understanding and is agreeable to plan of care. Denies any further questions or concerns at this time. Diagnostics: CBC, CMP, magnesium, EKG, chest x-ray Therapeutics: Fluids, Zofran 4 mg IV, Tylenol 975 mg p.o. Prescription: Zofran 4 mg ODT every 6 hours as needed for nausea Impression: COVID-19 pneumonia Plan: 1. Your COVID-19 screening is positive. That means you do have the coronavirus and you are considered contagious. Your vital signs and oxygen saturation are well enough that you were able to monitor your symptoms at home. Continue to monitor for trouble breathing, new confusion or inability to arouse, bluish lips or face or any of the other symptoms we discussed -if this occurs please return to the emergency room. 2. Please self quarantine until cleared by [facility]. Inform any persons that you have been in contact with since you started becoming symptomatic that you have tested positive; they should be made aware and take the appropriate steps as needed. 3. You can take NyQuil during the evening to help get a restful night sleep. May alternate Tylenol and ibuprofen as needed for pain and fever management. 4. The [facility] department will be calling you and following up with you. The [place] COVID 19 Hotline phone number , They are open Wednesday - Wednesday 7am - 7pm. Follow up with your primary care provider for re-evaluation and re-testing after the 10 day quarantine and discuss when you should be seen. 5. You will be called by the infusion clinic to come in for a nuclear Regeneron infusion. Your last day for this is tomorrow as this is her 10th. As we talked about you need to get a portable oxygen saturation monitor to monitor your saturation. If you get below 90% please return to the emergency room. As of right now you can treat your symptoms and take plenty of fluids. Definitive disposition and diagnosis as appropriate pending reevaluation and review of above. generalized Pain Score (Numeric/FACES): 5 - Related Data Allergies Allergy/AdvReac Type Severity Reaction Status Date / Time animal dander Allergy Unknown Other Verified 08/01/21 12:21 dog dander Allergy Unknown Other Verified 08/01/21 12:21 mold Allergy Unknown Other Verified 08/01/21 12:21 pollen extracts Allergy Unknown Other Verified 08/01/21 12:21 other Allergy Unknown Other Uncoded 08/01/21 12:21 Home Meds: Home Meds [place] Control 1 tab PO DAILY 10/06/18 [History] Levothyroxine 125 mcg PO QAM 10/06/18 [History] Montelukast [Singulair] 10 mg PO BEDTIME 10/06/18 [History] Albuterol Sulfate [Proair Hfa] 1 puff INH ASDIRECTED PRN 12/01/18 [History] Cyanocobalamin (Vitamin B12) [Vitamin B12] 100 mcg PO DAILY 12/01/18 [History] Rizatriptan Benzoate [Rizatriptan] 10 mg PO ONETIME MDD 30 mg 12/01/18 [History] Azelastine HCl 1 spray NASBOTH BID PRN 04/04/21 [History] Cetirizine [ZyrTEC] 10 mg PO DAILY 04/04/21 [History] Dexlansoprazole [Dexilant] 30 mg PO DAILY 04/04/21 [History] FLUoxetine HCl [Fluoxetine HCl] 40 mg PO DAILY 04/04/21 [History] Gabapentin [Neurontin] 300 mg PO QAM 04/04/21 [History] Gabapentin [Neurontin] 600 mg PO BEDTIME 04/04/21 [History] Ketamine HCl [Ketamine Hydrochloride] 1 dose TOP ASDIRECTED PRN 04/04/21 [History] Ketamine HCl in Sterile Water [Ketamine 50 mg/ml-Water Syring] 1 spray NASBOTH ASDIRECTED PRN 04/04/21 [History] Lisdexamfetamine Dimesylate [Vyvanse] 40 mg PO ACBREAKFAST 04/04/21 [History] Naltrexone 2 mg PO QAM 04/04/21 [History] Naltrexone 4 mg PO BEDTIME 04/04/21 [History] Ondansetron [Zofran ODT] 4 - 8 mg PO Q4H PRN 04/04/21 [History] tiZANidine HCl [Tizanidine HCl] 4 mg PO BEDTIME 04/04/21 [History] Ondansetron [Zofran ODT] 4 mg PO Q6H PRN #10 tab.dis 08/01/21 [Rx] Past Medical History HEENT History: Reports: Allergic Rhinitis Cardiovascular History: Reports: None Respiratory History: Reports: Asthma Other Respiratory History: has not needed inhaler for 3 years Gastrointestinal History: Reports: GERD Genitourinary History: Reports: None PSYCH ARNP History: Reports: Musculoskeletal History: Reports: Back Pain, Chronic, Fracture, Fibromyalgia Other Musculoskeletal History: hx of fx toes Neurological History: Reports: Migraines, Neuropathy, Peripheral, Other (See Below) Other Neuro History: lumbar degenerative disc disease Psychiatric History: Reports: ADHD Endocrine/Metabolic History: Reports: Hypothyroidism Other Endocrine/Metabolic History: hx of Hashimotos thyroiditis Hematologic History: Reports: None Immunologic History: Reports: None Oncologic (Cancer) History: Reports: None Dermatologic History: Reports: None - Infectious Disease History Infectious Disease History: Reports: None - Past Surgical History Head Surgeries/Procedures: Reports: None HEENT Surgical History: Reports: Naso-Sinus Surgery, Other (See Below) Other HEENT Surgeries/Procedures: Uvulectomy Cardiovascular Surgical History: Reports: None Respiratory Surgical History: Reports: None GI Surgical History: Reports: None Female Surgical History: Reports: Section Endocrine Surgical History: Reports: None Neurological Surgical History: Reports: None Musculoskeletal Surgical History: Reports: None Oncologic Surgical History: Reports: None Social & Family History - Family History Family Medical History: No Pertinent Family History ED ROS GENERAL - Review of Systems Review Of Systems: Comprehensive ROS is negative, except as noted in HPI. ED EXAM, GENERAL - Physical Exam Exam: See Below (See dictation) Course - Vital Signs Last Recorded V/S: Last Vital Signs Temp 98.2 F 08/01/21 14:50 Pulse 84 08/01/21 14:50 Resp 20 08/01/21 14:50 BP 113/73 08/01/21 14:50 Pulse Ox 98 08/01/21 14:50 - Orders/Labs/Meds Orders: Active Orders 24 hr Category Date Time Status Saline Lock Insert [OM.PC] Stat Oth 08/01/21 12:19 Ordered Labs: Laboratory Tests 08/01/21 08/01/21 Range/Units 11:42 11:42 WBC 6.41 (4.0-11.0) K/uL RBC 4.25 L (4.30-5.90) M/uL Hgb 12.6 (12.0-16.0) g/dL Hct 36.9 (36.0-46.0) % MCV 86.8 (80.0-98.0) fL MCH 29.6 (27.0-32.0) pg MCHC 34.1 (31.0-37.0) g/dL RDW Std Deviation 42.3 (28.0-62.0) fl RDW Coeff of Yuriy 14 (11.0-15.0) % Plt Count 206 (150-400) K/uL MPV 9.30 (7.40-12.00) fL Add Manual Diff YES Neutrophils % (Manual) 60 (48.0-80.0) % Band Neutrophils % 8 % Lymphocytes % (Manual) 29 (16.0-40.0) % Monocytes % (Manual) 3 (0.0-15.0) % Absolute Seg Neuts 3.8 (1.4-5.7) Band Neutrophils # 0.5 Lymphocytes # (Manual) 1.9 (0.6-2.4) Monocytes # (Manual) 0.2 (0.0-0.8) Sodium 135 L (136-145) mmol/L Potassium 3.7 (3.5-5.1) mmol/L Chloride 103 (98-107) mmol/L Carbon Dioxide 25.1 (21.0-32.0) mmol/L BUN 11 (7.0-18.0) mg/dL Creatinine 0.8 (0.6-1.0) mg/dL Est Cr Clr Drug Dosing 97.13 mL/min Estimated GFR (MDRD) > 60.0 ml/min Glucose 104 (74-106) mg/dL Calcium 7.9 L (8.5-10.1) mg/dL Magnesium 1.7 L (1.8-2.4) mg/dL Total Bilirubin 0.6 (0.2-1.0) mg/dL AST 48 H (15-37) IU/L ALT 48 (14-63) IU/L Alkaline Phosphatase 109 (46-116) U/L Total Protein 6.1 L (6.4-8.2) g/dL Albumin 2.3 L (3.4-5.0) g/dL Globulin 3.8 (2.6-4.0) g/dL Albumin/Globulin Ratio 0.6 L (0.9-1.6) Meds: Medications Discontinued Medications Generic Name Dose Route Start Last Admin Trade Name Freq PRN Reason Stop Dose Admin Acetaminophen 975 mg 08/01/21 12:29 08/01/21 12:49 Acetaminophen 325 Mg Tab PO 08/01/21 12:30 975 mg NOW ONE Administration Sodium Chloride 1,000 mls @ 999 mls/hr 08/01/21 12:32 08/01/21 12:49 Normal Saline IV 08/01/21 13:32 999 mls/hr .BOLUS ONE Administration Ondansetron HCl 4 mg 08/01/21 12:19 08/01/21 12:27 Ondansetron 4 Mg/2 Ml Sdv IVPUSH 08/01/21 12:20 4 mg ONETIME ONE Administration Sodium Chloride 10 ml 08/01/21 12:19 08/01/21 12:27 Sodium Chloride 0.9% 10 Ml Syringe FLUSH 10 ml ASDIRECTED PRN Administration Keep Vein Open Sodium Chloride 2.5 ml 08/01/21 12:19 08/01/21 12:27 Sodium Chloride 0.9% 2.5 Ml Syringe FLUSH 2.5 ml ASDIRECTED PRN Administration Keep Vein Open Departure - Departure Time of Disposition: 14:40 Disposition: Home, Self-Care 01 Condition: Good Clinical Impression: Pneumonia due to COVID-19 virus - Discharge Information *PRESCRIPTION DRUG MONITORING PROGRAM REVIEWED*: Not Applicable *COPY OF PRESCRIPTION DRUG MONITORING REPORT IN PATIENT TREY: Not Applicable Prescriptions: Ondansetron [Zofran ODT] 4 mg PO Q6H PRN #10 tab.dis PRN Reason: Nausea Instructions: COVID-19 Frequently Asked Questions, Interim Public Health Recommendations for Fully Vaccinated People - CDC (03/20/2021), COVID-19: What to Do If You Are Sick- [facility] (01/22/2021) Referrals: PCP,None [Primary Care Provider] - Forms: ED Department Discharge Additional Instructions: The following information is given to patients seen in the emergency department who are being discharged to home. This information is to outline your options for follow-up care. We provide all patients seen in our emergency department with a follow-up referral. The need for follow-up, as well as the timing and circumstances, are variable depending upon the specifics of your emergency department visit. If you don't have a primary care physician on staff, we will provide you with a referral. We always advise you to contact your personal physician following an emergency department visit to inform them of the circumstance of the visit and for follow-up with them and/or the need for any referrals to a consulting specialist. The emergency department will also refer you to a specialist when appropriate. This referral assures that you have the opportunity for follow-up care with a specialist. All of these measure are taken in an effort to provide you with optimal care, which includes your follow-up. Under all circumstances we always encourage you to contact your private physician who remains a resource for coordinating your care. When calling for follow-up care, please make the office aware that this follow-up is from your recent emergency room visit. If for any reason you are refused follow-up, please contact the [facility] at and asked to speak to the emergency department charge nurse. [facility] [address] [place] [address] [place] [address] Plan: 1. Your COVID-19 screening is positive. That means you do have the coronavirus and you are considered contagious. Your vital signs and oxygen saturation are well enough that you were able to monitor your symptoms at home. Continue to monitor for trouble breathing, new confusion or inability to arouse, bluish lips or face or any of the other symptoms we discussed -if this occurs please return to the emergency room. 2. Please self quarantine until cleared by [facility]. Inform any persons that you have been in contact with since you started becoming symptomatic that you have tested positive; they should be made aware and take the appropriate steps as needed. 3. You can take NyQuil during the evening to help get a restful night sleep. May alternate Tylenol and ibuprofen as needed for pain and fever management. 4. The [facility] department will be calling you and following up with you. The [place] KWASI 19 Hotline phone number , They are open Wednesday - Wednesday 7am - 7pm. Follow up with your primary care provider for re-evaluation and re-testing after the 10 day quarantine and discuss when you should be seen. 5. You will be called by the infusion clinic to come in for a nuclear Regeneron infusion. Your last day for this is tomorrow as this is her 10th. As we talked about you need to get a portable oxygen saturation monitor to monitor your saturation. If you get below 90% please return to the emergency room. As of right now you can treat your symptoms and take plenty of fluids. Sepsis Event Note (ED) - Focused Exam Vital Signs: Vital Signs Temp Pulse Resp BP Pulse Ox 08/01/21 14:50 98.2 F 84 20 113/73 98 08/01/21 14:03 98.2 F 84 18 108/68 97 08/01/21 13:10 82 20 101/71 96 08/01/21 12:14 98.0 F 80 18 110/64 98 - My Orders Last 24 Hours: My Active Orders 08/01/21 12:19 Saline Lock Insert [OM.PC] Stat - Assessment/Plan Last 24 Hours: My Active Orders 08/01/21 12:19 Saline Lock Insert [OM.PC] Stat
[2021-08-01] MEDS ORDERED: Acetaminophen 325 MG Tab PO ONE (12:29)
[2021-08-01] MEDS ORDERED: Sodium Chloride 0.9% 1,000 ML IV ONE (12:32)
--- NOTE | 2021-08-01 13:08 | PCM.EKG ---
#1 Interpretation EKG Interpretation Comments: EKG done 08/01/2021 at 12:54 PM sinus rhythm with a heart rate 78 a MS interval of 149 QT duration of 477 [place] [address] and T no prior for comparison impression normal EKG
--- NOTE | 2021-08-01 13:17 | CR ---
INDICATION: Cough, COVID-19 TECHNIQUE: Chest radiograph 1 view COMPARISON: 07/28/2021 FINDINGS: The sensitivity and specificity of the exam are moderately limited by the patient`s body habitus. Mediastinum: The mediastinum is normal in appearance. The heart silhouette is normal in size and morphology. Lung: Mild ground-glass opacities are present in the right lung base with patchy consolidation seen in the left lung base. No sign of pleural effusion seen. No pneumothorax is identified. Bone and Soft tissue: A neurostimulator pad is seen over the thoracic spine without change. IMPRESSION: 1. Mild ground-glass opacities are present in the right lung base with patchy consolidation seen in the left lung base. The left basilar consolidation has increased since prior exam. Dictated by Geoffrey Rodriguez MD @ 08/01/2021 1:15:51 PM Dictated by: Geoffrey Rodriguez MD @ 08/01/2021 13:15:57 (Electronically Signed)
[2021-08-01 13:29] LABS: BLOOD UREA NITROGEN,BUN 11 mg/dL (7.0-18.0); CARBON DIOXIDE,CO2 25.1 mmol/L (21.0-32.0); CHLORIDE,CL 103 mmol/L (98-107); GLUCOSE RANDOM 104 mg/dL (74-106); POTASSIUM,K 3.7 mmol/L (3.5-5.1); SODIUM,NA 135 mmol/L (136-145)
== END 2021-08-01 14:56 | disposition home or self-care (01) ==
LOC: MW.ED 12:08
DX: U07.1 COVID-19 (principal); J12.82 Pneumonia due to coronavirus disease 2019; J45.909 Unspecified asthma, uncomplicated; K21.9 Gastro-esophageal reflux disease without esophagitis; G43.909 Migraine, unspecified, not intractable, without status migrainosus; E03.9 Hypothyroidism, unspecified; Z91.048 Other nonmedicinal substance allergy status; Z79.899 Other long term (current) drug therapy
CPT/HCPCS: 36415; 71045; 80053; 83735; 85025; 93005; 96374; 99285; A9270; J2405; J7030

== ENCOUNTER 2021-08-14 08:36 | Emergency (ER) | payer OTHER ==
--- NOTE | 2021-08-14 09:18 | EDM.PDOC ---
ED HPI GENERAL MEDICAL PROBLEM - General Chief Complaint: Skin Complaint Stated Complaint: OPEN WOUND ON BACK Time Seen by Provider: 08/14/21 08:43 - History of Present Illness INITIAL COMMENTS - FREE TEXT/NARRATIVE: History of present illness: This patient had a nerve stimulator placed in her back on June [address] Tariq Pisano in [place]. On July 19 she had a superficial infection and she had a course of antibiotics but she got thrush severely. A new antibiotic was prescribed. She seemed to improve on the second year of antibiotics. A few days ago she noticed some drainage on her sheets. She was not sick herself. Her looked at the wound and said the scab and fallen off the area where her battery stimulator pack was placed in the left flank. Subsequently she had a complete dehiscence. She comes in today with bacitracin in the wound but before she placed bacitracin she took a picture and the battery pack itself is visible in this full-thickness dehiscence. There is a 2 cm gaping dehiscence which appears clean and noninfected with no surrounding cellulitis. The battery pack itself is visible and is full-thickness dehiscence. It gapes three fourths of a centimeter wide. Review of systems: As per history of present illness and below otherwise all systems reviewed and negative. Past medical history: As per history of present illness and as reviewed below otherwise noncontri butory. Surgical history: As per history of present illness and as reviewed below otherwise noncontributory. Social history: No reported history of drug or alcohol abuse. Family history: As per history of present illness and as reviewed below otherwise noncontributory. Physical exam: Constitutional - well developed, well-nourished and in no acute distress HEENT - normocephalic, no evidence of trauma - external nose and mouth normal - no mass in neck and no JVD - mucosae moist EYES - full EOM, PERRL, no icterus - no evidence of inflammation, injection, or drainage Respiratory - no respiratory distress, equal bilateral expansion Musculoskeletal no gross deformity of long bones or joints - no tenderness, swelling or edema Neurologic - Alert and oriented times four - CN II-XII grossly intact - motor sensory and coordination symmetrically normal Psychiatric - appropriate mood and affect with normal thought content Hematologic - No petechiae or purpura - mucosa appropriate color and sclera not pale - normal nail bed color and refill Integument -in the left flank there is a 3-1/4 cm x 1/4cm dehiscence 3/4 cm in depth with visible machinery in the depth of it. There is no surrounding cellulitis. The picture with no identifying data was sent to Dr. Pisano's nurse but she was expecting it and would be able to identify it on the receiving end and then all photos can be destroyed on this end. No rash or evidence of trauma - normal turgor Diagnostics: [] Therapeutics: [] Impression: [] Plan: [] Definitive disposition and diagnosis as appropriate pending reevaluation and review of above. - Related Data Allergies Allergy/AdvReac Type Severity Reaction Status Date / Time animal dander Allergy Unknown Other Verified 08/14/21 09:00 dog dander Allergy Unknown Other Verified 08/14/21 09:00 mold Allergy Unknown Other Verified 08/14/21 09:00 pollen extracts Allergy Unknown Other Verified 08/14/21 09:00 other Allergy Unknown Other Uncoded 08/01/21 12:21 Home Meds: Home Meds [place] Control 1 tab PO DAILY 10/06/18 [History] Levothyroxine 125 mcg PO QAM 10/06/18 [History] Montelukast [Singulair] 10 mg PO BEDTIME 10/06/18 [History] Albuterol Sulfate [Proair Hfa] 1 puff INH ASDIRECTED PRN 12/01/18 [History] Cyanocobalamin (Vitamin B12) [Vitamin B12] 100 mcg PO DAILY 12/01/18 [History] Rizatriptan Benzoate [Rizatriptan] 10 mg PO ONETIME MDD 30 mg 12/01/18 [History] Azelastine HCl 1 spray NASBOTH BID PRN 04/04/21 [History] Cetirizine [ZyrTEC] 10 mg PO DAILY 04/04/21 [History] Dexlansoprazole [Dexilant] 30 mg PO DAILY 04/04/21 [History] FLUoxetine HCl [Fluoxetine HCl] 40 mg PO DAILY 04/04/21 [History] Gabapentin [Neurontin] 300 mg PO QAM 04/04/21 [History] Gabapentin [Neurontin] 600 mg PO BEDTIME 04/04/21 [History] Ketamine HCl [Ketamine Hydrochloride] 1 dose TOP ASDIRECTED PRN 04/04/21 [History] Ketamine HCl in Sterile Water [Ketamine 50 mg/ml-Water Syring] 1 spray NASBOTH ASDIRECTED PRN 04/04/21 [History] Lisdexamfetamine Dimesylate [Vyvanse] 40 mg PO ACBREAKFAST 04/04/21 [History] Naltrexone 2 mg PO QAM 04/04/21 [History] Naltrexone 4 mg PO BEDTIME 04/04/21 [History] Ondansetron [Zofran ODT] 4 - 8 mg PO Q4H PRN 04/04/21 [History] tiZANidine HCl [Tizanidine HCl] 4 mg PO BEDTIME 04/04/21 [History] Ondansetron [Zofran ODT] 4 mg PO Q6H PRN #10 tab.dis 08/01/21 [Rx] Past Medical History HEENT History: Reports: Allergic Rhinitis Cardiovascular History: Reports: None Respiratory History: Reports: Asthma Other Respiratory History: has not needed inhaler for 3 years Gastrointestinal History: Reports: GERD Genitourinary History: Reports: None [employer] History: Reports: Musculoskeletal History: Reports: Back Pain, Chronic, Fracture, Fibromyalgia Other Musculoskeletal History: hx of fx toes Neurological History: Reports: Migraines, Neuropathy, Peripheral, Other (See Below) Other Neuro History: lumbar degenerative disc disease Psychiatric History: Reports: ADHD Endocrine/Metabolic History: Reports: Hypothyroidism Other Endocrine/Metabolic History: hx of Hashimotos thyroiditis Hematologic History: Reports: None Immunologic History: Reports: None Oncologic (Cancer) History: Reports: None Dermatologic History: Reports: None - Infectious Disease History Infectious Disease History: Reports: None - Past Surgical History Head Surgeries/Procedures: Reports: None HEENT Surgical History: Reports: Naso-Sinus Surgery, Other (See Below) Other HEENT Surgeries/Procedures: Uvulectomy Cardiovascular Surgical History: Reports: None Respiratory Surgical History: Reports: None GI Surgical History: Reports: None Female Surgical History: Reports: Section Endocrine Surgical History: Reports: None Neurological Surgical History: Reports: None Musculoskeletal Surgical History: Reports: None Oncologic Surgical History: Reports: None Social & Family History - Family History Family Medical History: No Pertinent Family History - Tobacco Use Tobacco Use Status *Q: Never Tobacco User Second Hand Smoke Exposure: No - Caffeine Use Caffeine Use: Reports: None - Recreational Drug Use Recreational Drug Use: No ED ROS GENERAL - Review of Systems Review Of Systems: Comprehensive ROS is negative, except as noted in HPI. ED EXAM, SKIN/RASH Exam: See Below Text/Narrative:: My physical exam is in the HPI Course - Vital Signs Text/Narrative:: 9:30 AM I sent photos of the dehiscence to Dr. Pisano's nurse. They were sent with no identifying data but when the nurse in the office was expecting them. They were then eliminated from the sending device. There will be no record of this on my device, the Internet, or our medical records. Dr. Pisano recommended that she come today so he can remove the device. Last Recorded V/S: Last Vital Signs Temp 36.5 C 08/14/21 08:57 Pulse 139 H 08/14/21 08:57 Resp 18 08/14/21 08:57 BP 149/107 H 08/14/21 08:57 Pulse Ox 96 08/14/21 08:57 - Orders/Labs/Meds Orders: Active Orders 24 hr Category Date Time Status Communication Order [RC] STAT Care 08/14/21 09:27 Ordered Departure - Departure Time of Disposition: 09:31 Disposition: Home, Self-Care 01 Condition: Good Clinical Impression: Wound dehiscence, Accidental exposure to metallic lead - Discharge Information Instructions: Wound Dehiscence, [id number] Referrals: Bai Timmons NP [Primary Care Provider] - Trae Pisano [Ordering Only Provider] - Forms: ED Department Discharge Additional Instructions: Do not eat or drink until you get to [facility] and go directly to see Dr. Pisano at the [facility]. They are expecting you today. Call when you know what time you expect arrive. [facility] - Primary Care [address] [place] [id number] [id number] The following information is given to patients seen in the emergency department who are being discharged to home. This information is to outline your options for follow-up care. We provide all patients seen in our emergency department with a follow-up referral. The need for follow-up, as well as the timing and circumstances, are variable depending upon the specifics of your emergency department visit. If you don't have a primary care physician on staff, we will provide you with a referral. We always advise you to contact your personal physician following an emergency department visit to inform them of the circumstance of the visit and for follow-up with them and/or the need for any referrals to a consulting specialist. The emergency department will also refer you to a specialist when appropriate. This referral assures that you have the opportunity for follow-up care with a specialist. All of these measure are taken in an effort to provide you with optimal care, which includes your follow-up. Under all circumstances we always encourage you to contact your private physician who remains a resource for coordinating your care. When calling for follow-up care, please make the office aware that this follow-up is from your recent emergency room visit. If for any reason you are refused follow-up, please contact the [facility] Emergency Department at and asked to speak to the emergency department charge nurse. Sepsis Event Note (ED) - Evaluation Sepsis Screening Result: No Definite Risk - Focused Exam Vital Signs: Vital Signs Temp Pulse Resp BP Pulse Ox 08/14/21 08:57 36.5 C 139 H 18 149/107 H 96 - My Orders Last 24 Hours: My Active Orders 08/14/21 09:27 Communication Order [RC] STAT - Assessment/Plan Last 24 Hours: My Active Orders 08/14/21 09:27 Communication Order [RC] STAT
== END 2021-08-14 09:51 | disposition home or self-care (01) ==
LOC: MW.ED 08:36
DX: T81.30XA Disruption of wound, unspecified, initial encounter (principal); K21.9 Gastro-esophageal reflux disease without esophagitis; E03.9 Hypothyroidism, unspecified; Z79.899 Other long term (current) drug therapy; Z91.09 Other allergy status, other than to drugs and biological substances; Z91.048 Other nonmedicinal substance allergy status; X50.0XXA Overexertion from strenuous movement or load, initial encounter
CPT/HCPCS: 99283

== ENCOUNTER 2021-09-26 17:20 | Emergency (ER) | payer OTHER | END 2021-09-26 18:42 | disposition left against medical advice (07) | LOC: MW.ED 17:20 | DX: Z53.21 Procedure and treatment not carried out due to patient leaving prior to being seen by health care provider (principal) ==

== ENCOUNTER 2022-07-06 08:24 | Day surgery (SDC) | payer OTHER ==
[~2022-07-06 08:24] MED LIST changes: +Lidocaine 2% 5 ML SDV ONE; +Propofol 200 MG/20 ML SDV ONE; -ceFAZolin 1 GM in Premix Bag 1 BAG IV ONE; +fentaNYL 100 MCG/2 ML SDV ONE
[2022-07-06] MEDS ORDERED: Famotidine 20 MG/2 ML SDV ONE (10:16)
[2022-07-06] MEDS ORDERED: Propofol 200 MG/20 ML SDV ONE (11:45)
[2022-07-06] MEDS ORDERED: Lactated Ringers 1,000 ML IV SCH (12:00)
== END 2022-07-06 12:40 | disposition home or self-care (01) ==
LOC: MW.SDS 08:24
PROVIDERS: ATTEND Surgery
DX: R19.4 Change in bowel habit (principal); K52.9 Noninfective gastroenteritis and colitis, unspecified; J45.909 Unspecified asthma, uncomplicated; F41.9 Anxiety disorder, unspecified; F32.A Depression, unspecified; G43.709 Chronic migraine without aura, not intractable, without status migrainosus; K21.9 Gastro-esophageal reflux disease without esophagitis; F42.9 Obsessive-compulsive disorder, unspecified; E66.9 Obesity, unspecified; R73.03 Prediabetes; E78.5 Hyperlipidemia, unspecified; E55.9 Vitamin D deficiency, unspecified; G47.30 Sleep apnea, unspecified; E06.3 Autoimmune thyroiditis; G62.9 Polyneuropathy, unspecified; F90.9 Attention-deficit hyperactivity disorder, unspecified type; Z91.048 Other nonmedicinal substance allergy status; Z79.83 Long term (current) use of bisphosphonates; Z79.899 Other long term (current) drug therapy; Z98.890 Other specified postprocedural states; Z68.26 Body mass index [BMI] 26.0-26.9, adult; Z79.890 Hormone replacement therapy
CPT/HCPCS: 36415; 45378; 84703; J2704; J3010; J3490; J7120

== ENCOUNTER 2022-07-14 20:40 | Emergency (ER) | payer OTHER ==
[2022-07-14] MEDS ORDERED: Metoclopramide 10 MG/2 ML SDV IVPUSH ONE (22:01)
[2022-07-14] MEDS ORDERED: diphenhydrAMINE 50 MG/ML SDV IVPUSH ONE (22:01)
[2022-07-14] MEDS ORDERED: Sodium Chloride 0.9% 10 ML Syringe FLUSH PRN (22:01)
[2022-07-14] MEDS ORDERED: Sodium Chloride 0.9% 2.5 ML Syringe FLUSH PRN (22:01)
[2022-07-14] MEDS ORDERED: Ketorolac 30 MG/ML SDV IVPUSH ONE (22:01)
[2022-07-14] MEDS ORDERED: Sodium Chloride 0.9% 1,000 ML IV ONE (22:01)
[2022-07-14] MEDS ORDERED: CAFFEINE CITRATE 20 MG/ML PO ONE ×2 (22:10→22:51)
[2022-07-14 22:41] LABS: CARBON DIOXIDE,CO2 22.3 mmol/L (21.0-32.0); POTASSIUM,K 4.1 mmol/L (3.5-5.1)
[2022-07-14] MEDS ORDERED: Caffeine Citrated (ORAL SOLUTION) 60 MG/3 ML PO ONE (22:56)
[2022-07-14] MEDS ORDERED: Acetaminophen/Butalbital/Caffeine 325-50-40 MG Tab PO ONE (23:37)
== END 2022-07-14 23:51 | disposition home or self-care (01) ==
LOC: MW.ED 20:40
DX: G97.1 Other reaction to spinal and lumbar puncture (principal); R51.9 Headache, unspecified; K21.9 Gastro-esophageal reflux disease without esophagitis; E03.9 Hypothyroidism, unspecified; Z79.899 Other long term (current) drug therapy
CPT/HCPCS: 36415; 80053; 85025; 96361; 96374; 96375; 99284; A9270; J0706; J1200; J1885; J2765; J7030

== ENCOUNTER → 2022-07-16 | Day surgery (SDC) | payer OTHER | LOC: MW.SDS 10:40 | PROVIDERS: ATTEND Anesthesiology | DX: G97.1 Other reaction to spinal and lumbar puncture (principal); J45.909 Unspecified asthma, uncomplicated; K21.9 Gastro-esophageal reflux disease without esophagitis; G62.9 Polyneuropathy, unspecified; E03.9 Hypothyroidism, unspecified; Z91.048 Other nonmedicinal substance allergy status; Z79.899 Other long term (current) drug therapy; Z98.890 Other specified postprocedural states | CPT/HCPCS: 62273; 70551; 70551-26 ==

== ENCOUNTER 2024-02-22 08:55 | Emergency (ER) | payer OTHER ==
[2024-02-22] MEDS: predniSONE 20 MG Tab PO ONE (10:08)
[2024-02-22 10:15] LABS: BASOPHILS ABSOLUTE AUTO 0.05 K/uL (0.00-0.20); BASOPHILS PERCENT AUTO 0.4 % (0.0-1.0); EOSINOPHILS ABSOLUTE AUTO 0.62 K/uL (0.00-0.45); EOSINOPHILS PERCENT AUTO 5.4 % (0.0-6.0); HEMATOCRIT 39.7 % (37.0-47.0); HEMOGLOBIN 13.5 g/dL (12.0-16.0); IMMATURE GRAN ABSOLUTE AUTO 0.08 K/uL (0.00-0.05); IMMATURE GRAN PERCENT AUTO 0.7 % (0.0-0.4); LYMPHOCYTES ABSOLUTE AUTO 3.06 K/uL (1.00-4.80); LYMPHOCYTES PERCENT AUTO 26.9 % (24.0-44.0); MEAN CORPUSCULAR VOLUME 85.2 fL (83.0-99.0); MEAN PLATELET VOLUME 9.4 fL (9.4-12.3); MONOCYTES PERCENT AUTO 5.3 % (0.0-8.0); NEUTROPHILS ABSOLUTE AUTO 6.97 K/uL (1.80-7.70); NEUTROPHILS PERCENT AUTO 61.3 % (41.0-71.0); PLATELET COUNT,PLT 299 K/uL (150-400); RED BLOOD CELL COUNT 4.66 M/uL (4.10-5.30); WHITE BLOOD CELL COUNT,WBC 11.38 K/uL (3.9-11.3)
[2024-02-22 10:34] LABS: INR 0.93 (0.86-1.11)
[2024-02-23 11:07] LABS: NEUTROPHILS% 65 % (41-71)
== END 2024-02-22 11:30 | disposition home or self-care (01) ==
LOC: MW.ED 08:55
DX: L50.9 Urticaria, unspecified (principal); K21.9 Gastro-esophageal reflux disease without esophagitis; E03.9 Hypothyroidism, unspecified; G62.9 Polyneuropathy, unspecified; Z75.8 Other problems related to medical facilities and other health care; Z91.048 Other nonmedicinal substance allergy status; Z79.899 Other long term (current) drug therapy
CPT/HCPCS: 36415; 85025; 85610; 99283; A9270

== ENCOUNTER 2024-10-01 09:41 | Emergency (ER) | payer BC, OTHER ==
[2024-10-01] MEDS: EPINEPHrine 1 MG/1 ML Amp IM ONE (09:57)
[2024-10-01] MEDS: methylPREDNISolone Sodium Succinate 125 MG/2 ML SDV IVPUSH ONE (09:58)
[2024-10-01] MEDS: Famotidine 20 MG/2 ML SDV IVPUSH ONE (09:59)
[2024-10-01] MEDS: diphenhydrAMINE 50 MG/ML SDV IVPUSH ONE (09:59)
== END 2024-10-01 12:01 | disposition home or self-care (01) ==
LOC: MW.ED 09:41
DX: T78.2XXA Anaphylactic shock, unspecified, initial encounter (principal); J45.909 Unspecified asthma, uncomplicated; K21.9 Gastro-esophageal reflux disease without esophagitis; E03.9 Hypothyroidism, unspecified; Z91.048 Other nonmedicinal substance allergy status; Z88.8 Allergy status to other drugs, medicaments and biological substances; Z79.899 Other long term (current) drug therapy
CPT/HCPCS: 96372; 96374; 96375; 99283; J0171; J1200; J2919; J3490

== ENCOUNTER 2025-10-16 11:17 | Emergency (ER) | payer BC ==
[2025-10-16] MEDS ORDERED: Sodium Chloride 0.9% 2.5 ML Syringe FLUSH PRN (11:23)
[2025-10-16] MEDS ORDERED: Sodium Chloride 0.9% 10 ML Syringe FLUSH PRN (11:23)
[2025-10-16] MEDS: diphenhydrAMINE 50 MG/ML SDV IVPUSH ONE (11:39)
== END 2025-10-16 14:46 | disposition home or self-care (01) ==
LOC: MW.ED 11:17
DX: T78.40XA Allergy, unspecified, initial encounter (principal); K21.9 Gastro-esophageal reflux disease without esophagitis; E03.9 Hypothyroidism, unspecified; Z79.899 Other long term (current) drug therapy; Z79.890 Hormone replacement therapy; Z91.048 Other nonmedicinal substance allergy status; Z91.010 Allergy to peanuts
CPT/HCPCS: 96374; 96375; 99283; J1200; J2919; J7620; A9270-GY